=== PATIENT | female | born 1960 | race American Indian/Alaskan Native ===

== ENCOUNTER 2017-11-29 07:22 | Outpatient (CLI) | payer OTHER ==
--- NOTE | 2017-11-29 09:52 | Mammography Report ---
IMPLANT MAMMOGRAM: Bilateral breast imaging was done with standard and displacement technique. Intermediate density parenchyma is symmetrically seen ventral to each implant. The submuscular implant contours are smooth with no extravasation. No suspicious findings or secondary signs of malignancy are seen. No interval change compared to prior exam of September 2016. CAD was utilized. CONCLUSION: Negative implant mammogram. RECOMMENDATION: Routine follow-up. BI-RADS CATEGORY: 1 = Negative ACR BI-RADS MAMMOGRAPHIC CODES: 0 = Needs additional imaging evaluation; 1 = Negative; 2 = Benign; 3 = Probably benign; 4 = Suspicious; 5 = Malignant; 6 = Known biopsy-proven malignancy COMMENT: 1. Dense breast tissue, i.e., adenosis, fibrocystic changes, etc., may obscure an underlying neoplasm. 2. Approximately 10% of cancers are not detected with mammography. 3. A negative mammography report should not delay biopsy if a clinically suspicious mass is present. COMMENT: Patient follow-up letters are generated in [employer].
== END 2017-11-29 07:23 | disposition home or self-care (01) ==
LOC: MAMMO 07:22
PROVIDERS: ATTEND Obstetrics & Gynecology
DX: Z12.31 Encounter for screening mammogram for malignant neoplasm of breast (principal); Z98.82 Breast implant status
CPT/HCPCS: 77067

== ENCOUNTER 2018-01-02 05:53 | Day surgery (SDC) | payer OTHER ==
--- NOTE | 2017-12-31 18:42 | History and Physical Report ---
History of Present Illness Date of examination: 01/02/18 Chief complaint: Discordant Pap and Colposcopic Biopsy History of present illness: Pt is a 57 year old -[place] female who presents with ASCUS pap , + HPV with discordant colposcopic biopsies. She has had multiple abnormal pap smears in the past but has never undergone an excision procedure. Past History Past Medical History: hypertension Past Surgical History: TAB BUILDER/uterine surgery (tubal ligation) TAB BUILDER History: herpes Family/Genetic History: none Social history: no significant social history, Medications and Allergies Allergies Allergy/AdvReac Type Severity Reaction Status Date / Time SUHAS Inhibitors Allergy edema Verified 01/01/18 10:37 metronidazole [From Flagyl] AdvReac Intermediate FEVER Unverified 02/27/14 08:14 Metronidazole HCl AdvReac Intermediate FEVER Unverified 02/27/14 08:14 [From Flagyl] NSAIDS (Non-Steroidal AdvReac Unknown Verified 01/01/18 10:37 Anti-Inflamma Home Medications Medication Instructions Recorded Confirmed Last Taken Type ALBUTEROL Inhaler [Proair] 2 puff IH QID PRN 01/01/18 01/01/18 Unknown History Amlodipine Besylate [Norvasc] 10 mg PO DAILY 01/01/18 01/01/18 Unknown History Ascorbic Acid [Vitamin C] 1,000 mg PO DAILY 01/01/18 01/01/18 Unknown History Aspirin [Aspirin EC] 81 mg PO DAILY 01/01/18 01/01/18 Unknown History Ergocalciferol(Vitamin D2)(Nf) 400 unit PO DAILY 01/01/18 01/01/18 Unknown History [Vitamin D (Nf)] Hydroxychloroquine [Plaquenil] 100 mg PO QDAY 01/01/18 01/01/18 Unknown History Multivitamin [Multiple Vitamins] 1 each PO DAILY 01/01/18 01/01/18 Unknown History Prednisone [predniSONE ([place]) ER 5 mg PO QDAY 01/01/18 01/01/18 Unknown History TAB] Tiotropium Br/Olodaterol HCl 4 gm IH DAILY 01/01/18 01/01/18 Unknown History [Stiolto Respimat Inhal [place]] Active Meds: Active Medications Cefazolin Sodium (Ancef/Sterile Water 2 Gm/20 Ml) 2 gm in 20 mls @ 80 mls/hr IV PREOP NR; Protocol Lactated Ringer's (Lactated Ringers) 1,000 mls @ 100 mls/hr IV DIRECT LUIS ANTONIO Review of Systems All systems: negative - Physical Exam Breasts: Positive: deferred Cardiovascular: Regular rate Lungs: Positive: Clear to auscultation Abdomen: Positive: soft Extremities: Positive: normal Results All other labs normal. Assessment and Plan A: ASCUS pap, Discordant Colposcopic Biopsy Persistent HPV infection HTN P: Proceed with loop electrosurgical excision procedure
[~2018-01-02 05:53] MED LIST: ANCEF/STERILE WATER 2 GM/20 ML 2 GM/20 ML SYRINGE IV NR; LACTATED RINGERS 1,000 ML IV SCH
[2018-01-02] MEDS ORDERED: NACL BACTERIOSTATIC INFILTRATI ONE (06:51)
[2018-01-02] MEDS ORDERED: XYLOCAINE 1% 20 mL ONE (06:52)
[2018-01-02] MEDS ORDERED: MONSEL'S TP ONE ×2 (06:53→10:31)
[2018-01-02] MEDS ORDERED: LUGOL'S SOLUTION 5% TP ONE ×2 (06:53→10:30)
[2018-01-02] MEDS ORDERED: DIPRIVAN 10 MG/ML IV ONE (07:02)
[2018-01-02] MEDS ORDERED: PROVENTIL IH ONE (07:10)
[2018-01-02 07:14] LABS: Hematocrit 39.2 % (30.3-42.9); Hemoglobin 13.1 gm/dl (10.1-14.3); Mean Corpuscular HGB Conc 33 % (30-34); Mean Corpuscular Hemoglobin 29 pg (28-32); Mean Corpuscular Volume 86 fl (79-97); Platelet Count 419 K/mm3 (140-440); Red Blood Count 4.57 M/mm3 (3.65-5.03)
--- NOTE | 2018-01-02 07:24 | Anesthesia Day of Surgery ---
Anesthesia Day of Surgery - Day of Surgery Patient Examined: Yes Patient H&P Reviewed: Yes Patient is NPO: Yes
--- NOTE | 2018-01-02 07:27 | Anesthesia Consultation ---
Anesthesia Consult and Med Hx Date of service: 01/02/18 - Airway Anesthetic Teeth Evaluation: Good (veneers) ROM Head & Neck: Adequate Mental/Hyoid Distance: Adequate Mallampati Class: Class I Intubation Access Assessment: Probably Good - Pulmonary Exam CTA: No (L>R rhonchi saw truck rental manager yesrterday and received steroids) - Cardiac Exam Cardiac Exam: RRR - Pre-Operative Health Status ASA Pre-Surgery Classification: ASA3 Proposed Anesthetic Plan: General - Pulmonary SOB: Yes - Cardiovascular System Hx Hypertension: Yes - Central Nervous System Hx Psychiatric Problems: No - Endocrine Hx Renal Disease: Yes (proteinuria x 20 yrs) - Other Systems Hx Alcohol Use: Yes (occas) Hx Cancer: No - Additional Comments Anesthesia Medical History Comments: SLE saw pulmonary yesrterday- no CXR just steroids will discuss with Sx
[2018-01-02] MEDS ORDERED: ZOFRAN IV PRN (08:14)
[2018-01-02] MEDS ORDERED: SUBLIMAZE IV PRN (08:14)
--- NOTE | 2018-01-02 08:40 | XRay Report ---
Portable chest: Bilateral bronchoalveolar opacifications are present at the right and left lung bases. No consolidation identified. No air bronchogram. The mid and upper portions of the lung demonstrate mild increased interstitial densities. No hilar or mediastinal adenopathy. Normal cardiovascular structures. No prior exams currently available for comparison at our institution however by history one was obtained at an outside office yesterday. 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
[2018-01-02] MEDS ORDERED: PEPCID IV NR (09:00)
[2018-01-02] MEDS ORDERED: NACL 0.9% 100 ML ONE (09:33)
[2018-01-02] MEDS ORDERED: Vasostrict ONE (09:33)
[2018-01-02] MEDS ORDERED: XYLOCAINE MPF 2% ONE (09:39)
[2018-01-02] MEDS: DILAUDID IV PRN ×4 (10:20→10:37)
--- NOTE | 2018-01-02 10:24 | Short Stay Summary ---
Short Stay Documentation Date of service: 01/02/18 - History H&P: dictated Social history: no significant social history, - Allergies and Medications Current Medications: Allergies SUHAS Inhibitors Allergy (Verified 01/01/18 10:37) edema metronidazole [From Flagyl] Adverse Reaction (Intermediate, Unverified 02/27/14 08:14) FEVER Metronidazole HCl [From Flagyl] Adverse Reaction (Intermediate, Unverified 02/27 08:14) FEVER NSAIDS (Non-Steroidal Anti-Inflamma Adverse Reaction (Verified 01/01/18 10:37) Unknown Not to take due to kidney history Home Medications Medication Instructions Recorded Confirmed Last Taken Type ALBUTEROL Inhaler [Proair] 2 puff IH QID PRN 01/01/18 01/02/18 01/02/18 04:30 History Amlodipine Besylate [Norvasc] 10 mg PO DAILY 01/01/18 01/02/18 01/02/18 04:30 History Ascorbic Acid [Vitamin C] 1,000 mg PO DAILY 01/01/18 01/02/18 12/31/17 09:00 History Aspirin [Aspirin EC] 81 mg PO DAILY 01/01/18 01/02/18 12/28/17 09:00 History Ergocalciferol(Vitamin D2)(Nf) 400 unit PO DAILY 01/01/18 01/02/18 12/31/17 09: 00 History [Vitamin D (Nf)] Hydroxychloroquine [Plaquenil] 100 mg PO QDAY 01/01/18 01/02/18 12/31/17 09:00 History Multivitamin [Multiple Vitamins] 1 each PO DAILY 01/01/18 01/02/18 12/31/17 09: 00 History Prednisone [predniSONE ([place]) ER 5 mg PO QDAY 01/01/18 01/02/18 12/31/17 09:00 History TAB] Tiotropium Br/Olodaterol HCl 4 gm IH DAILY 01/01/18 01/02/18 01/01/18 07:00 History [Stiolto Respimat Inhal [place]] Active Medications Famotidine (Pepcid) 20 mg IV PREOP NR Fentanyl (Sublimaze) 50 mcg IV Q5MIN PRN PRN Reason: Pain , Severe (7-10) Hydromorphone HCl (Dilaudid) 0.25 mg IV Q10MIN PRN PRN Reason: Pain, Moderate (4-6) Cefazolin Sodium (Ancef/Sterile Water 2 Gm/20 Ml) 2 gm in 20 mls @ 80 mls/hr IV PREOP NR; Protocol Stop: 01/02/18 23:59 Lactated Ringer's (Lactated Ringers) 1,000 mls @ 100 mls/hr IV DIRECT LUIS ANTONIO Last Admin: 01/02/18 07:05 Dose: 100 mls/hr Ondansetron HCl (Zofran) 4 mg IV ONCE PRN PRN Reason: Nausea And Vomiting - Physical exam Breasts: deferred - Brief post op/procedure progress note Date of procedure: 01/02/18 Pre-op diagnosis: ASCUS pap, Persistent HPV, Discordant Colposcopic Biopsies Post-op diagnosis: same Procedure: Loop Electrosurgical Excision Procedure (LEEP) Anesthesia: GETA Findings: Small non-staining area of cervix after application of Lugol's solution Surgeon: DORITA GOOD Estimated blood loss: minimal Pathology: list (cerivcal biopsy) Specimen disposition: to lab Condition: stable - Hospital course Hospital course: Pt was initially noted to have diminished breath sounds and had a chest x-ray suspicious for bilateral pneumonia. However, the pt's Medical Billing Coder was consulted and noted that the patient has bilateral interstitial fibrosis that was unchanged from prior studies. The patient tolerated LEEP well. She was observed in the PACU until she met discharge criteria. She will follow up next week with her Medical Billing Coder and in [address] Good. - Disposition Condition at discharge: Stable Disposition: DC- TO HOME OR SELFCARE - Discharge Diagnoses (1) ASCUS with positive high risk HPV Status: Chronic (2) Interstitial pulmonary fibrosis Status: Chronic (3) Lupus Status: Chronic Qualifiers: Lupus erythematosus form: unspecified Qualified Code(s): L93.0 - Discoid lupus erythematosus Short Stay Discharge Plan Activity: other (Nothing in vagina x 4 wks ) Weight Bearing Status: Full Weight Bearing Diet: regular Additional Instructions: YOU HAD A PAIN PILL AT 10:50. Follow up with: KIMBERLY NUGENT MD [Staff Physician] - 7 Days DORITA GOOD MD [Staff Physician] - 01/16/18 (please schedule postoperative appt ) Forms: Outpatient Surgery DC Inst. Prescriptions: oxyCODONE /ACETAMINOPHEN [Percocet 5/325] 1 tab PO Q6HR PRN #30 tablet PRN Reason: Pain
--- NOTE | 2018-01-02 10:24 | Operative Report ---
Operative Report Operative Report: Date of procedure: January 03, 2018 Preoperative diagnosis: ASCUS pap, + HP; Persistent HPV Postoperative diagnosis: same Procedure: Loop electrosurgical excision procedure (LEEP) Surgeon: Tona Good MD Anesthesia: General with LMA Findings: Small non-staining area of cervix after application of Lugol's solution EBL: 5 mL Urine output: 150 mL prior to the procedure Specimens: cervical biopsy tagged at 12 o clock to pathology Drains: None Complications: None. Counts correct x 2 Disposition: stable to PACU Indication for procedure: Pt is a 57 year old -[place] female who presents with ASCUS pap , + HPV with discordant colposcopic biopsies. She has had multiple abnormal pap smears in the past but has never undergone an excision procedure. Operation in detail: After the risks, benefits, alternatives, and complications were explained to the patient, she gave informed consent for the procedure. She was subsequently taken to the operating room with her IV noted to be running well and placed in the dorsal supine position. SCDs were noted to be in place and functioning. General anesthesia was induced without difficulty. The patient was then placed in the dorsal lithotomy position and prepped and draped in a normal sterile fashion. A timeout was performed. The bladder was drained of 150 mL of urine prior to the start of the procedure. A coated speculum was then placed in the vagina for visualization of the cervix. The cervix was injected with 5 mL of a dilute pitressin solution at 12, 3 , 6, and 9 o clock. Lugol's solution was then placed on cervix with a small non-staining area. A small loop was used to excise a cervical specimen that was tagged at 12 o clock and sent to pathology. Rollerball cautery was used to obtain hemostasis of the cervical bed. Monsel's solution was placed over the cervical bed. Hemostasis was noted. All instruments were removed from the vagina and the procedure was then ended. The patient was then replaced into the dorsal supine position and extubated without difficulty. She was then taken to the PACU in stable condition. All counts were correct x 2.
[2018-01-02] MEDS ORDERED: Vasostrict IM ONE (10:31)
--- NOTE | 2018-01-02 10:31 | Post Anesthesia Evaluation ---
- Post Anesthesia Evaluation Patient Participated: Yes Airway Patent: Yes Stable Respiratory Function: Yes Nausea/Vomiting: No Temp > 96.8F: Yes Pain Manageable: Yes Adequeate Hydration: Yes Anesthesia Complications: No Block Receding Appropriately: Not Applicable (2030)
[2018-01-02] MEDS ORDERED: NACL 0.9% IV ONE (10:32)
[2018-01-02] MEDS ORDERED: PERCOCET 5/325 ONE (10:40)
[2018-01-02] MEDS ORDERED: PERCOCET 5/325 PO PRN (10:42)
[2018-01-02] MEDS ORDERED: DILAUDID IV PRN (10:52)
[2018-01-02 11:24] VITALS: BP 142/86
== END 2018-01-02 11:43 | disposition home or self-care (01) ==
LOC: OR 05:53
PROVIDERS: ATTEND Obstetrics & Gynecology
DX: A63.0 Anogenital (venereal) warts (principal); A60.03 Herpesviral cervicitis; N88.8 Other specified noninflammatory disorders of cervix uteri; R87.610 Atypical squamous cells of undetermined significance on cytologic smear of cervix (ASC-US); I10 Essential (primary) hypertension; Z88.8 Allergy status to other drugs, medicaments and biological substances; Z98.51 Tubal ligation status
CPT/HCPCS: 36415; 57460; 71045; 85027; 86850; 86900; 86901; 88307; J0690; J1170; J1720; J2704; J7120